=== PATIENT | female | born 1960 | race Caucasian/White ===

== ENCOUNTER 2021-06-30 05:55 | Day surgery (SDC) | payer OTHER ==
[2021-06-21 11:00] VITALS: BMI 29.2
[2021-06-30] MEDS ORDERED: BUPIVACAINE HCL/EPINEPHRINE/PF 30 ML VIAL IJ ONE (07:14)
[2021-06-30] MEDS ORDERED: PROPOFOL 20 ML ONE ×2 (07:15)
[2021-06-30] MEDS ORDERED: MIDAZOLAM HCL 2 MG/2 ML SINGLE DOSE VIAL ONE ×2 (07:31→07:45)
[2021-06-30] MEDS ORDERED: GLYCOPYRROLATE 0.2 MG/1 ML VIAL ONE (07:53)
[2021-06-30] MEDS ORDERED: ONDANSETRON 4 MG/2 ML VIAL ONE (08:08)
[2021-06-30] MEDS ORDERED: DEXAMETHASONE SOD PHOSPHATE 4 MG/1 ML VIAL ONE (08:08)
[2021-06-30] MEDS ORDERED: ONDANSETRON 4 MG/2 ML VIAL IVPUSH PRN (08:16)
[2021-06-30] MEDS ORDERED: oxyCODONE HCL 5 MG TABLET PO PRN ×2 (08:16)
[2021-06-30] MEDS ORDERED: LACTATED RINGERS SOLUTION 1,000 ML IV SCH (08:30)
[2021-06-30] MEDS ORDERED: diphenhydrAMINE HCL 25 MG CAPSULE (FP) PO ONE (09:21)
[2021-06-30 10:18] VITALS: TEMP 97.8
[2021-06-30 11:35] VITALS: BP 147/64; PULSE 49
== END 2021-06-30 11:05 | disposition home or self-care (01) ==
LOC: FASU 05:55
PROVIDERS: ATTEND Orthopaedic Surgery
PROC: 0SBC4ZZ Excision of Right Knee Joint, Percutaneous Endoscopic Approach (ICD-10-PCS; principal; 2021-06-30 08:04)
DX: S83.281A Other tear of lateral meniscus, current injury, right knee, initial encounter (principal); M23.000 Cystic meniscus, unspecified lateral meniscus, right knee; M65.9 Synovitis and tenosynovitis, unspecified; X58.XXXA Exposure to other specified factors, initial encounter; Y93.9 Activity, unspecified; Y92.9 Unspecified place or not applicable
CPT/HCPCS: 94760

== ENCOUNTER 2022-03-23 08:10 | Day surgery (SDC) | payer OTHER ==
[2022-03-16 15:19] VITALS: BMI 32.8
[2022-03-23] MEDS ORDERED: BUPIVACAINE HCL/EPINEPHRINE/PF 30 ML VIAL IJ ONE (08:43)
[2022-03-23] MEDS ORDERED: PROPOFOL 20 ML ONE (10:06)
[2022-03-23] MEDS ORDERED: MIDAZOLAM HCL 2 MG/2 ML SINGLE DOSE VIAL ONE (10:06)
[2022-03-23] MEDS ORDERED: LIDOCAINE HCL/PF 2% SDV 5ML VIAL ONE (10:07)
[2022-03-23] MEDS ORDERED: GLYCOPYRROLATE 0.2 MG/1 ML VIAL ONE (10:07)
[2022-03-23] MEDS ORDERED: ceFAZolin SODIUM 1 GM VIAL ONE (10:20)
[2022-03-23] MEDS ORDERED: SODIUM CHLORIDE 0.9% P/F 10 ML VIAL IJ ONE (10:20)
[2022-03-23] MEDS ORDERED: DEXAMETHASONE SOD PHOSPHATE 4 MG/1 ML VIAL ONE (10:25)
[2022-03-23] MEDS ORDERED: ONDANSETRON 4 MG/2 ML VIAL ONE (10:25)
[2022-03-23] MEDS ORDERED: KETOROLAC TROMETHAMINE 30 MG/1 ML VIAL ONE (10:26)
[2022-03-23] MEDS ORDERED: SUCCINYLCHOLINE CHLORIDE 200 MG/10 ML SYRINGE ONE (10:39)
[2022-03-23] MEDS ORDERED: PROMETHAZINE HCL 25 MG/1 ML VIAL IVPUSH PRN (11:05)
[2022-03-23] MEDS ORDERED: ONDANSETRON 4 MG/2 ML VIAL IVPUSH PRN (11:05)
[2022-03-23] MEDS ORDERED: oxyCODONE HCL 5 MG TABLET PO PRN (11:05)
[2022-03-23] MEDS ORDERED: LACTATED RINGERS SOLUTION 1,000 ML IV SCH (11:15)
[2022-03-23 13:07] VITALS: PULSE 50; TEMP 97.6
[2022-03-23 13:12] VITALS: BP 147/77
== END 2022-03-23 13:00 | disposition home or self-care (01) ==
LOC: FASU 08:10
PROVIDERS: ATTEND Orthopaedic Surgery
PROC: 0SBC4ZZ Excision of Right Knee Joint, Percutaneous Endoscopic Approach (ICD-10-PCS; principal; 2022-03-23 10:32)
DX: S83.281A Other tear of lateral meniscus, current injury, right knee, initial encounter (principal); X58.XXXA Exposure to other specified factors, initial encounter; Y93.9 Activity, unspecified; Y92.9 Unspecified place or not applicable
CPT/HCPCS: 94760

== ENCOUNTER 2024-11-22 13:47 | Emergency (ER) | payer OTHER ==
[2024-11-22 14:18] VITALS: BP 142/60; PULSE 55; RESP 18; TEMP 98.2; BMI 29.2
[2024-11-22] MEDS ORDERED: ACETAMINOPHEN 325 MG TABLET (FP) ONE (14:29)
[2024-11-22] MEDS ORDERED: LIDOCAINE 5% TOPICAL PATCH ONE ×2 (14:31→16:17)
[2024-11-22] MEDS: LIDOCAINE 5% TOPICAL PATCH TP ONE ×2 (14:45→16:20)
[2024-11-22] MEDS: ACETAMINOPHEN 325 MG TABLET (FP) PO ONE (14:45)
[2024-11-22] MEDS ORDERED: LIDOCAINE PATCH REMOVAL MC SCH (22:00)
[2024-11-22] MEDS ORDERED: LIDOCAINE PATCH REMOVAL MC ONE (22:00)
== END 2024-11-22 16:30 | disposition home or self-care (01) ==
LOC: FER 13:47
DX: M54.6 Pain in thoracic spine (principal)
CPT/HCPCS: 36415; 71046-TC-FY; 72070-TC-FY; 86803; 99284-25